=== PATIENT | female | born 1995 | race African-American/Black ===

== ENCOUNTER 2017-04-15 10:17 | Emergency (ER) | payer MEDICAID ==
[~2017-04-15] VITALS: Ht 170.2 cm; Wt 104.3 kg
[~2017-04-15 10:17] MED LIST: IBUPROFEN600 MG ORAL; MULTIVITAMINS1 EAC2 ORAL; NITROFURANTOIN100 M2 ORAL; ZOFRAN4 M3 ORAL
[2017-04-15 10:33] VITALS: BP 109/68
[2017-04-15 10:55] LABS: APPEARANCE,URINE CLEAR; KETONES,URINE NEGATIVE (NEGATIVE); LEUKOCYTE ESTERASE ,URINE NEGATIVE (NEGATIVE); NITRITE,URINE NEGATIVE (NEGATIVE); PH,URINE 6 (4.5-8.0); PROTEIN,URINE NEGATIVE (NEGATIVE); UROBILINOGEN,URINE NORMAL MG/DL (0.0-1.0)
[2017-04-15 10:59] LABS: BACTERIA,URINE OCCASIONAL /HPF; SQUAMOUS EPITHELIAL CELL,UR FEW /LPF (NONE/OCC); WBC,URINE 0-2 /HPF (0 - 2)
[2017-04-15 11:32] VITALS: BP 107/66
--- NOTE | 2017-04-15 11:32 | Emergency Room Report ---
History of Present Illness General Chief Complaint: Female Urogenital Problems Source: Patient Present Illness HPI 21YOF walk-in with longer than usual menstrual bleeding. Denies associated abd pain, nausea/vomiting, urinary complaints, flank pain. Denies chance of being Not on ASA, AC. Per EMR, visits to same for ER before. States she went to [facility] but they told her to "go back to the ER". Allergies: Coded Allergies: No Known Allergies (Unverified , 05/17/16) Patient History Past Medical History: none Past Surgical History: none Pertinent Family History: none Social History: Denies: alcohol use, drug use, smoking Last Menstrual Period: 04/04/17 Now: No Immunizations: UTD Reviewed Nursing Documentation: PMH: Agreed, PSxH: Agreed Nursing Documentation-PMH Past Medical History: No Stated History Review of Systems All Other Systems: negative except mentioned in HPI Physical Exam Vital Signs Date Time Temp Pulse Resp B/P Pulse Ox O2 Delivery O2 Flow Rate FiO2 04/15/17 10:25 98.2 85 15 109/68 99 Room Air Sp02 EP Interpretation: reviewed, normal General Appearance: normal inspection, well appearing, no apparent distress, alert, GCS 15, non-toxic, other - Very well appearing, playing on phone Head: normocephalic, atraumatic ENT: normal ENT inspection, hearing grossly normal, normal voice Neck: normal inspection, full range of motion, supple, no bony tend Respiratory: normal inspection, lungs clear, normal breath sounds, no respiratory distress, no retraction, no wheezing Gastrointestinal: normal inspection, normal bowel sounds, non tender, soft, no guarding, no hernia Genitourinary: no CVA tenderness Musculoskeletal: normal inspection, back normal, normal range of motion, Caio' s Sign negative Neurologic: normal inspection, alert, oriented x3, responsive, 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, motor strength/tone normal, speech normal Psychiatric: normal inspection, judgement/insight normal, mood/affect normal Skin: normal inspection, normal color, no rash Lymphatic: normal inspection Medical Decision Making Diagnostic Impression: Primary Impression: Dysfunctional uterine bleeding ER Course Not 2-4RBCs in urine No infection Advised [facility] followup Last Vital Signs Date Time Temp Pulse Resp B/P Pulse Ox O2 Delivery O2 Flow Rate FiO2 04/15/17 10:33 98.2 72 15 109/68 99 Room Air Status: improved Disposition: HOME, SELF-CARE Condition: Improved Referrals: NOT CHOSEN IPA/MD,REFERRING Patient Instructions: Abnormal Uterine Bleeding, [id number] Additional Instructions: - Please follow up with [facility] given multiple visits to ED for dysfunctional uterine bleeding. - UA today shows 2+ blood. Urine preg negative. No UTI. MARIA SANTILLAN M.D. Apr 15, 2017 11:32
== END 2017-04-15 11:33 | disposition home or self-care (01) ==
LOC: EMR 11:09
DX: N93.8 Other specified abnormal uterine and vaginal bleeding (principal)
CPT/HCPCS: 81003; 81025; 99282